=== PATIENT | male | born 1955 | race Two or more races ===

== ENCOUNTER → 2024-11-11 | Outpatient (CLI) | payer OTHER, MEDICAID, SELFPAY ==
--- NOTE | 2024-11-11 16:30 | XR_ITS ---
Examination: CT chest, without intravenous contrast. Sagittal and coronal 2-D reconstructions. Exam date and time: November 11, 2024 1627 hours INDICATIONS: Smoking history 40 years CTDI:vol (mGy) 12 DLP: (mGycm) 462 Technique: Multiple 3.0 mm axial sections of the chest to been obtained. Bone and lung density settings are obtained. Sagittal and coronal 2-D reconstructions have been obtained. Low dose protocols were performed. One or more of the following dose reduction techniques were used; automated exposure control, adjustment of the mA and/or KV according to patient size, use of iterative reconstruction technique. Findings: 5 mm right thyroid nodule Thoracic aorta calcification no aneurysmal dilatation No significant enlargement pulmonary artery segments Significant calcification left anterior descending left circumflex right coronary arteries Mild enlargement cardiac contour No paratracheal tracheobronchial or bronchopulmonary adenopathy 4 mm pulmonary nodule right middle lobe, axial image 185 No pneumonia or pulmonary edema No visualized liver or splenic lesion Cholelithiasis, negative for cholecystitis Minor nodular thickening left adrenal gland No hydronephrosis IMPRESSION: 5 mm right thyroid nodule 4 mm nodule right middle lobe noncalcified, consider continued 6 month follow-up CT chest without contrast
== END | disposition home or self-care (01) ==
PROVIDERS: PCP Physician Assistant; Referring Provider Physician Assistant; Visit Provider Physician Assistant
DX: E04.1 Nontoxic single thyroid nodule (principal); R91.8 Other nonspecific abnormal finding of lung field
CPT/HCPCS: 71271